=== PATIENT | male | born 1995 | race Caucasian/White ===

== ENCOUNTER 2016-10-08 05:31 | Emergency (ER) | payer BC ==
[~2016-10-08] VITALS: Ht 177.8 cm; Wt 83.6 kg
[~2016-10-08 05:31] MED LIST: SERT50TA PO
[2016-10-08 05:39] VITALS: TEMP 37.1; Ht 177.8 cm; Wt 83.6 kg
--- NOTE | 2016-10-08 05:56 | EMERGENCY ROOM VISIT NOTE ---
History Report prepared by Jie: Steffanie Quiroga Under the Supervision of: Dr. Nayely Shine D.O. First contact with patient: 05:46 Chief Complaint: LACERATION/CUT (SUT/DERMABOND) Stated Complaint: CUT LIP Nursing Triage Summary: pt states he fell on his bed, lac to bottom lip History of Present Illness The patient is a 21 year old male who presents to the Emergency Room with complaints of a sudden fall that occurred one hour prior to arrival. The patient states that this evening he was drinking alcohol. He states that he tripped over his feet this evening, hitting his head and face on his bed frame. The patient states that he hit his elbow during the fall but denies any pain. He states that he has not slept yet this morning. The patient denies any loss of consciousness, neck pain, chest pain, abdominal pain, vomiting, or back pain. He states that his teeth have been fitting normally since the incident. The patient denies any drug use other than alcohol this evening. Source of History: patient Onset: one hour prior to arrival Position: other (global) Quality: other (fall) Timing: other (sudden) Associated Symptoms: No LOC, No abdominal pain, No back pain, No chest pain , No neck pain, No vomiting Review of Systems See HPI for pertinent positives & negatives. A total of 10 systems reviewed and were otherwise negative. Past Medical & Surgical Surgical Problems: (1) S/P knee surgery Family History No pertinent family history Social History Smoking Status: Never Smoker Smokeless Tobacco Use: No Alcohol Use: occasionally Marital Status: single Housing Status: lives with roommate Occupation Status: [employer] Current/Historical Medications Scheduled Sertraline (Zoloft), 75 MG PO DAILY Allergies Coded Allergies: No Known Allergies (Unverified , 10/08/16) Physical Exam Vital Signs Date Time Temp Pulse Resp B/P Pulse Ox O2 Delivery O2 Flow Rate FiO2 10/08/16 07:36 98 18 126/64 98 10/08/16 06:04 100 16 126/65 96 Room Air 10/08/16 05:39 37.1 112 18 107/57 95 Room Air Physical Exam HEENT: Head - contusion to right forehead. Pupils are equal, round, and reactive to light. Extraocular eye muscles are intact and sclera are anicteric. Ears - bilaterally patent canals with no evidence of hemotympanum. Nose - moist nasal mucosa without evidence of trauma or discharge. Mouth - 1 cm laceration just inferior to the right lower lip, moist buccal mucosa with no trauma to the teeth or signs of malocclusion. There was some superficial trauma inside the right lower lip but no puncture wound. Neck: The neck is supple and there is no pain to palpation over the posterior cervical spine and no obvious step-offs or deformities. There is no JVD or tracheal deviation. Chest: There are no signs of deformities, contusions or abrasions to the chest wall. There is no obvious crepitus or paradoxical chest rise. Heart: Regular, rate, and rhythm. There is a normal S1 and S2 with no murmurs, clicks, or gallops appreciated. Lungs: Clear to auscultation bilaterally with no wheezes, rales, or rhonchi. Abdomen: Soft, completely nontender, nondistended, with good bowel sounds. There is no sign of trauma such as contusions, abrasions or penetrations. There are no palpable pulsatile masses or hepatosplenomegaly. There is no guarding, rigidity, or rebound noted. Pelvis: Stable to rock and compression. Extremities: No obvious trauma, deformities, contusions, or edema. There are easily palpable peripheral pulses. Neuro: The patient is awake and alert and easily able to follow commands. Muscle strength is 5 out of 5 in all 4 extremities. Otherwise, neuro exam is unremarkable. Back: The entire thoracic, lumbar, and sacral spine were palpated. There are no obvious step-offs or deformities noted. There are no obvious signs of trauma such as contusions abrasions penetrations noted to the back. Medical Decision & Procedures ER Provider Diagnostic Interpretation: CT results as stated below per my review and radiologist interpretation: CT Head: No ICH, mass effect or edema. No skull fracture. Radiologist: ALONZO Suresh Study ready tat 0603 and initial results transmitted at 0612 Medications Administered Medications (Trade) Dose Ordered Sig/Ulises Route Start Time Stop Time Status Last Admin Dose Admin Lidocaine HCl (Buffered Lidocaine 1% Inj) 20 ml STK-MED ONCE INFIL 10/08/16 06:47 10/08/16 06:48 DC 10/08/16 07:11 20 ML Procedure Lidocaine HCl 20 ml INFIL The laceration was repaired by Joshua Ruiz PA-C. See his dictation for full detail. ED Course 0547: Past medical records reviewed. The patient was evaluated in room B8. A complete history and physical exam was performed. The patient had a CT scan of the brain performed. This was unremarkable. 0647: Ordered Lidocaine HCl 20 ml INFIL. I reevaluated the patient at this time and he is doing well. I discussed the exam findings with him and I discussed the treatment plan. He verbalized complete understanding and agreement. Joshua Ruiz PA-C will repair the patient's laceration and then the patient is okay to go home. Medical Decision The patient is a 21 year old male who presents to the ED with fall. Differential diagnosis includes facial fracture, intracranial trauma, skull fracutre, alcohol intoxication, assault. The patient admits to drinking alcohol tonight. He states that he tripped over his feet and fell striking his face off of his bed frame. The patient did not lose consciousness. He denies injuring any other part of his body except for his lower face. He denies any neck pain. The patient did have a contusion to the right forehead. He had a CT scan of the brain which was unremarkable. The wound beneath the lower lip was repaired. Impression Primary Impression: Facial laceration Additional Impression: Fall Scribe Attestation The scribe's documentation has been prepared under my direction and personally reviewed by me in its entirety. I confirm that the note above accurately reflects all work, treatment, procedures, and medical decision making performed by me. Departure Information Dispostion Home / Self-Care Referrals No Doctor, Assigned (PCP) Forms HOME CARE DOCUMENTATION FORM, IMPORTANT VISIT INFORMATION Patient Instructions ED Laceration Facial Sutr Tape, [facility] [employer] [facility] Additional Instructions Rest with your head elevated. Have sutures removed in 5-6 days tylenol for pain. Problem Qualifiers
[2016-10-08] MEDS ORDERED: XYLOCAINE 1%/SOD BICARB 20 ML VIAL INFIL ONE (06:47)
--- NOTE | 2016-10-08 07:22 | EMERGENCY ROOM VISIT NOTE ---
ED Visit Note 21-year-old male who I was asked by Dr. Shine, ED attending physician, to perform a laceration repaired. Please see her dictation for further treatment and final disposition. PROCEDURE NOTE: Examination shows a 1 cm laceration that is immediately adjacent to the right lower lip vermilion border, but does not cross the vermilion border. No active bleeding noted. The patient also has a small wet mucosal abrasion/laceration that will not require suture repair. The patient provided verbal consent for laceration repair under local anesthesia. Using buffered 1% lidocaine without epinephrine, good local anesthesia was administered. The wound was then peripherally cleansed with iodine, then copiously pressure irrigated with normal saline. The wound was then approximated using 6-0 nylon simple interrupted sutures 4. Bacitracin was applied. The patient tolerated the procedure well.
[2016-10-08 07:36] VITALS: BP 126/64; PULSE 98; O2SAT 98
--- NOTE | 2016-10-08 08:32 | DIAGNOSTIC IMAGING REPORT ---
CT HEAD WITHOUT CONTRAST (CT) CLINICAL HISTORY: Right hand pain status post trauma COMPARISON STUDY: No previous studies for comparison. TECHNIQUE: Axial CT of the brain is performed from the vertex to the skull base. IV contrast was not administered for this examination. CT DOSE: 614.27 mGy.cm FINDINGS: No intra or extra-axial mass lesions are visualized. There is no CT evidence of acute cortical infarction. There is no evidence of midline shift. There is no acute hemorrhage. No calvarial fractures are visualized. There is no evidence of pathologic ventricular dilatation. There is no evidence of acute sinusitis IMPRESSION: Normal noncontrast head CT. Electronically signed by: Bogdan Rolon M.D. 10/08/2016 8:30 AM Dictated Date/Time: 10/08/2016 8:29 AM
== END 2016-10-08 07:37 | disposition home or self-care (01) ==
LOC: C.EDB 05:32
DX: S01.511A Laceration without foreign body of lip, initial encounter (principal); W19.XXXA Unspecified fall, initial encounter; Z79.899 Other long term (current) drug therapy